=== PATIENT | female | born 1955 | race Caucasian/White ===

== ENCOUNTER 2022-12-19 12:32 | Outpatient (CLI) | payer OTHER, SELFPAY ==
[2022-12-19 14:11] LABS: Chloride* 100 mmol/L (96-114)
[2022-12-19 14:12] LABS: Potassium* 4.7 mmol/L (3.6-5.1); Sodium* 133 mmol/L (135-149)
[2022-12-19 14:14] LABS: Blood Urea Nitrogen* 30 mg/dL (7-30); Carbon Dioxide* 31 mmol/L (20-32); Cholesterol* 232 mg/dL (90-199); Creatinine* 1.2 mg/dL (0.5-1.5); Estimated Glomerular Filt Rate 49 ml/min
[2022-12-19 14:15] LABS: Calcium* 9.4 mg/dL (8.4-10.6); Glucose* 137 mg/dL (60-115); HDL Cholesterol* 43 mg/dL (>=50); LDL Cholesterol Calculated 133 mg/dL (<100); Triglycerides* 279 mg/dL (40-149)
== END 2022-12-19 12:33 | disposition home or self-care (01) ==
PROVIDERS: PCP Family Medicine; Visit Provider Family Medicine
DX: E78.5 Hyperlipidemia, unspecified (principal); I10 Essential (primary) hypertension
CPT/HCPCS: 80048; 80061

== ENCOUNTER 2023-06-20 11:10 | Outpatient (CLI) | payer OTHER, SELFPAY | END 2023-06-20 11:11 | disposition home or self-care (01) | PROVIDERS: PCP Family Medicine; Visit Provider Family Medicine | DX: E78.2 Mixed hyperlipidemia (principal); I10 Essential (primary) hypertension; E11.9 Type 2 diabetes mellitus without complications; R53.83 Other fatigue | CPT/HCPCS: 80061; 84460 ==

== ENCOUNTER 2024-07-08 09:30 | Outpatient (CLI) | payer OTHER, SELFPAY | END 2024-07-08 09:31 | disposition home or self-care (01) | PROVIDERS: PCP Family Medicine; Visit Provider Family Medicine | DX: E78.2 Mixed hyperlipidemia (principal); I10 Essential (primary) hypertension | CPT/HCPCS: 80048; 80061; 84460 ==